=== PATIENT | female | born 1975 | race Caucasian/White ===

== ENCOUNTER 2017-02-24 22:41 | Emergency (ER) | payer BC ==
--- NOTE | 2017-02-25 02:57 | ED CLINICAL REPORT ---
Clinical Report - Physicians/Mid Levels [facility] [address] [place] [address] 02/24/2017 22:43 Patient: YARA VERNON Time Seen: 01:36. Arrived- By private vehicle. Historian- patient. HISTORY OF PRESENT ILLNESS Chief Complaint: ABDOMINAL PAIN. At its maximum, severity described as 10 / 10. When seen in the E.D., severity described as 6 / 10. Modifying factors- worsened by movement and walking. Relieved by rest. It is described as sharp and it is described as located in the left abdomen and left lower quadrant and radiating to the low back. This started last night and is still present. It was abrupt in onset and has been constant and waxing/waning. The patient has had nausea. No vomiting or diarrhea. Similar symptoms previously: Many times. Diagnosis: pancreatitis. ( hypertriglyceridemia She has also had bouts of this pain that were for unexplained reasons). REVIEW OF SYSTEMS Last normal menstrual period now. No chills, fever, calf pain, chest pain or cough. No difficulty breathing, pedal edema, palpitations, black stools or bloody stools. No constipation or urinary problems. The patient has experienced sweats and had abdominal pain and mild diarrhea. All systems otherwise negative, except as recorded above. PAST HISTORY PCP - Luke. Problems: Anxiety Reaction. Gerd. Pancreatitis. Hyperlipidemia. Additional Surgeries: Cyct on rt overy removal. Rt overy removed. Tubal Ligation. Medications: Atorvastatin Calcium Oral (Tablet 20 mg), daily. Zoloft Oral 50 mg, daily. Omeprazole Oral 20 mg, daily. Allergies: Hydrocodone. SOCIAL HISTORY Current every day heavy tobacco smoker (cigarette)- 1 pack per day. No alcohol use. Residence: [place] she lives with spouse. FAMILY HISTORY Diabetes in first-degree relative (father); heart disease in first-degree relative (father); cancer in first-degree relative (mother). ADDITIONAL NOTES The nursing notes have been reviewed. PHYSICAL EXAM Vital Signs: 02/24/2017 23:33 BP: 140/76. HR: 68. RR: 16. O2 saturation: 97%. Temp: 98 F. Pain level now: 06/16. Have been reviewed. Appearance: Alert. Eyes: Pupils equal, round and reactive to light. ENT: Pharynx normal. Neck: Normal inspection. Neck supple. CVS: Normal heart rate and rhythm. Heart sounds normal. Respiratory: No respiratory distress. Breath sounds normal. Abdomen: Moderate tenderness in the left side of the abdomen. Bowel sounds normal. No organomegaly. No mass. Back: Normal inspection. No CVA tenderness. Skin: Skin warm and dry. Normal skin color. Normal skin turgor. Extremities: Extremities exhibit normal ROM. No calf tenderness. No lower extremity edema. LABS, X-RAYS, AND EKG Abdominal CT: Normal study. The study was interpreted by the radiologist and contemporaneously by me. Laboratory Tests: UA-Culture if indicated: (MANUEL: 02/25/2017 01:30) ( [facility] [place] 01:59[place] Final results Test Result Flag Units (Reference) URINE COLOR YELLOW URINE APPEARANCE CLEAR URINE GLUCOSE NEGATIVE (NEGATIVE) URINE BILIRUBIN NEGATIVE (NEGATIVE) URINE KETONE TRACE (NEGATIVE) URINE SPECIFIC GRAVITY 1.020 (1.010-1.030) URINE PH 5.5 (5.0-8.0) URINE PROTEIN NEGATIVE (NEGATIVE) URINE UROBILINOGEN 0.2 EU/dL (0.2-1.0) URINE NITRITE NEGATIVE (NEGATIVE) URINE BLOOD 2+ (NEGATIVE) URINE LEUK ESTERASE NEGATIVE (NEGATIVE) URINE RBC 1-3 rbc/hpf (0-1) URINE WBC 0-1 wbc/hpf (0-1) URINE EPITHELIAL CELLS 0-1 EPI/hpf (0-5) URINE BACTERIA NONE SEEN (NONE SEEN) URINE COMMENT CULT NOT INDICATED URINE CULTURES ARE SET-UP BASED ON THE FOLLOWING CRITERIA:POSITIVE NITRITEPOSITIVE LEUKOCYTE ESTERASEGREATER THAN 10 WHITE BLOOD CELLSMODERATE (2+) OR GREATER BACTERIA Urine: (MANUEL: 02/25/2017 01:30) ( Mscvd 02/25/2017 01:52) Final results Test Result Flag Units (Reference) URINE NEGATIVE CBC w Diff: (MANUEL: 02/25/2017 01:30) ( MsgRcvd 02/25/2017 01:50) Final results Test Result Flag Units (Reference) WHITE BLOOD COUNT 9.6 K/uL (4.5-11.5) RED BLOOD COUNT 4.40 M/uL (4.00-5.20) HEMOGLOBIN 13.5 gm/dL (12.0-16.0) HEMATOCRIT 39.5 % (36.0-46.0) MEAN CELL VOLUME 90 fL (80-100) MEAN CORPUSCULAR HGB 31 pg (26-34) MEAN CORPUSCULAR HGB CONC 34 g/dL (31-37) RED CELL DISTRIBUTION WIDTH 12.2 % (11.6-14.8) PLATELET COUNT 180 K/uL (150-400) NEUTROPHIL % 63.4 % (50-75) LYMPH % 27.6 % (25-40) MONO % 6.9 % (3-14) EOSINOPHIL % 1.7 % (0-4) BASOPHIL % 0.4 % (0-2) CMP: (MANUEL: 02/25/2017 01:30) ( MsgRcvd 02/25/2017 02:03) Final results Test Result Flag Units (Reference) GLUCOSE 107 mg/dL (70-110) BUN 10 mg/dL (7-18) CREATININE 0.9 mg/dL (0.6-1.3) Estimated GFR >60 mL/min Estimated GFR- >60 mL/min Note: Persistent reduction over 3 months in eGFR<60 mL/min/1.73 m2 defines CKD. Patients with eGFR values>=60 mL/min/1.73 m2 may also have CKD if evidence ofpersistent proteinuria. Additional information may be foundat www.kidney.org. SODIUM 143 mmol/L (136-145) POTASSIUM 3.6 mmol/L (3.5-5.1) CHLORIDE 106 mmol/L (98-107) CARBON DIOXIDE 28 mmol/L (21-32) CALCIUM 8.8 mg/dL (8.5-10.1) TOTAL PROTEIN 7.4 g/dL (6.4-8.2) ALBUMIN 3.9 g/dL (3.3-5.0) BILIRUBIN, TOTAL 0.6 mg/dL (0.0-1.0) ALKALINE PHOSPHATASE 43 L U/L (46-116) AST (SGOT) 15 U/L (15-37) ALT (SGPT) 39 U/L (12-78) LIPASE 197 U/L (73-393) AMYLASE 40 U/L (25-115) . PROGRESS AND PROCEDURES Course of Care: Patient is stable. Patient/family counseled. Old medical records ordered. Old records unavailable. Disposition: Discharged. Condition: stable. CLINICAL IMPRESSION Left lower quadrant abdominal pain of unknown cause. Microscopic hematuria INSTRUCTIONS No driving or operating machinery while taking medication. Sedative medication was given during your visit. Drink plenty of fluids. Warnings: Further evaluation is necessary. GENERAL WARNINGS: Return or contact your physician immediately if your condition worsens or changes unexpectedly, if not improving as expected, or if other problems arise. Prescription Medications: Ultram 50 mg: take 1-2 orally every 6 hours as needed for pain. Dispense fifteen (15). No refills. Substitution is permissible. Follow-up: Follow up with a urologist schedule your cystoscopy as previously planned as discussed. Understanding of the discharge instructions verbalized by patient. Follow-up with: [facility] [place], , , [id number] [facility] [address], Follow up tomorrow. Call for an appointment. (Electronically signed by Sancho Flores MD 03/02/2017 22:18)
--- NOTE | 2017-02-25 02:57 | ED ORDER SUMMARY ---
..... Patient: YARA VERNON OrderSheet [facility] VisitID: [id number] [place] [address] 41y, F Registration Date/Time: 02/24/2017 ORDER SHEET Weight: 79.3 kg (stated) Allergies: Hydrocodone GENERAL ORDERS: CBC w Diff Urgent (:02/25/2017 Aakash GOODWIN) (1:43 CFalkner R.N.) CMP Urgent (:02/25/2017 Aakash GOODWIN) (1:43 CFalkner R.N.) UA-Culture if indicated Urgent (:02/25/2017 Aakash GOODWIN) (1:43 CFalkner R.N.) Amylase Urgent (02/25/2017 Aakash GOODWIN) (1:43 CFalkner R.N.) Lipase Urgent (:02/25/2017 Aakash GOODWIN) (1:43 CFalkner R.N.) Urine Urgent (:02/25/2017 Aakash GOODWIN) (1:43 CFalkner R.N.) CT Abd/Pel w Cont (No) (See report) Urgent (02:02/25/2017 Aakash GOODWIN) (Ack 2:12 SRedmond) (2:27 RCollier R.N.) MEDICATION ORDERS: IV FLUIDS: IV NS : initial bolus 500 mL (1000 mL/hr), then 125 mL/hr for 4h (NOW); Urgent (:02/25/2017 Aakash GOODWIN) (Ack 1:42 RCollier R.N.) (2:26 RCollier R.N.) Dilaudid IV 0.5 mg (HIGH ALERT MEDICATION, NOW) (02:02/25/2017 Aakash GOODWIN) (Ack 2:17 RCollier R.N.) (2:27 RCollier R.N.) Zofran IV 4 mg (NOW) (02:02/25/2017 Aakash GOODWIN) (Ack 2:17 RCollier R.N.) (2:26 RCollier R.N.) ORDER SHEET NOTES: [Electronically signed by Ashley Qureshi R.N. (03:13 02/25/2017)] [Electronically signed by Sancho Flores MD (22:18 03/02/2017)] [Electronically locked/signed by Ashley Qureshi R.N. (03:13 02/25/2017)]
--- NOTE | 2017-02-25 02:57 | ED NURSING NOTES ---
Clinical Report - Nurses [facility] [place] [address] 02/24/2017 22:43 Patient: YARA VERNON TRIAGE Triage time 23:34. Acuity: LEVEL 3. Chief Complaint: ABDOMINAL PAIN, NAUSEA and DIARRHEA. 23:42. --23:42 Ana Melvin R.N. 23:33 02/24/17. BP: 140/76 taken on the left arm, via an automated monitor, while sitting. HR: 68 (regular, normal rate and strong). RR: 16 (regular, unlabored and normal). O2 saturation: 97% on room air. Temp: 98 F (oral). Pain level now: 06/16. --23:42 Ana Melvin R.N. Weight: 79.3 kg stated. Height/Length: 65 inches. BMI: 29.1. --23:35 Ana Melvin R.N. Medications Omeprazole Oral 20 mg, daily. --23:37 Ana Melvin R.N. Zoloft Oral 50 mg, daily. --23:37 Ana Melvin R.N. Atorvastatin Calcium Oral (Tablet 20 mg), daily. --23:38 Ana Melvin R.N. Allergies Hydrocodone. --23:38 Ana Melvin R.N. History Arrived by private vehicle. Historian: patient. Accompanied by spouse. SOCIAL HX: Current every day heavy tobacco smoker, start date 1991- less than 1 pack per day. No alcohol use or drug use. FALL RISK ASSESSMENT: Fall risk assessment completed. No fall risk identified. NUTRITIONAL RISK ASSESSMENT: The nutritional risk assessment revealed no deficiencies. FUNCTIONAL ASSESSMENT: Functional assessment: no impairments noted. LEARNING NEEDS ASSESSMENT: The learning needs assessment revealed no barriers. SKIN INTEGRITY ASSESSMENT: Skin integrity risk assessment completed. No skin integrity risk identified. --23:42 Ana Melvin R.N. PROBLEMS: Anxiety Reaction. Gerd. Pancreatitis. Hyperlipidemia. --23:40 Ana Melvin R.N. ADDITIONAL SURGERIES: Cyct on rt overy removal. Rt overy removed. Tubal Ligation. --:42 Ana Melvin R.N. Interventions To waiting room. --:42 Ana Melvin R.N. PHYSICAL ASSESSMENT Ambulatory to room. Patient gowned. GENERAL / NEURO / PSYCH: Alert. Oriented X 4. Appears in pain. HEENT: Mucous membranes are pink. RESPIRATORY: Respirations not labored. CVS: Capillary refill less than 2 seconds. SKIN: Skin is warm and dry. --:31 Ashley Qureshi R.N. NURSING PROGRESS NOTES Head of bed elevated. Two patient identifiers checked. Call light placed in reach. Side rails up x 1. Bed placed in lowest position. Brakes of bed on. --: Ashley Qureshi R.N. Patient ID band checked for patient name and birthdate: patient confirmed. Instructions provided to collect clean catch urine and patient verbalized understanding. Clean catch urine collected with return of yellow-colored clear urine; sample sent to lab. Specimen labeled in the presence of the patient. --01:33 Ashley Qureshi R.N. 01:49 02/25/2017 Site #1 started via IV in the right antecubital space with an 20g angiocath, with aseptic technique and good blood return; one attempt. Blood drawn: rainbow set. Labeled in the presence of the patient and sent to the lab. Saline lock flushed with 10 mL saline. --01:49 Ana Melvin R.N. 02:20 02/25/2017 Started bag #1 1000 mL IV Fluids IV NS (Saline); bolus of 500 mL over 30 minute(s) then at 125 mL/hr via site #1 via IV pump. Allergies verified and confirmed 5 rights. IV patency established. IV site checked: no pain, redness, or swelling. IV flushed thoroughly pre- and post-medication administration. --02:26 Ashley Qureshi R.N. 02:23 02/25/2017 Zofran (Ondansetron HCl) IVP 4 mg given over 30 second(s) via site #1. Allergies verified and confirmed 5 rights. IV patency established. IV site checked: no pain, redness, or swelling. IV flushed thoroughly pre- and post-medication administration. IVP given by RN. --02:26 Ashley Qureshi R.N. 02:24 02/25/2017 Dilaudid (HYDROmorphone HCl PF) IVP 0.5 mg given over 1 minute(s) via site #1. Allergies verified, confirmed 5 rights and sedative warning given to the patient. IV patency established. IV site checked: no pain, redness, or swelling. IV flushed thoroughly pre- and post-medication administration. IVP given by RN. --02:27 Ashley Qureshi R.N. Patient transported to [place] by stretcher with [facility]. (02:25). --02:27 Ashley Qureshi R.N. DISPOSITION / DISCHARGE 03:11 02/25/17. BP: 128/77. HR: 62. RR: 15. O2 saturation: 99% on room air. Gibbons-Bravo pain scale: 4/10. --03:12 Ashley Qureshi R.N. 03:10. Condition at departure: stable. No learning barriers present. Discharge instructions provided and reviewed with the patient. Reviewed medication(s) side effects, precautions, dosing and course information. Prescription(s) given to the patient. Patient verbalized understanding. Written instructions provided in Malay. The patient was discharged home and accompanied by spouse. She left the Emergency Department ambulatory and via private vehicle. Spouse driving. --03:12 Ashley Qureshi R.N. 03:10 02/25/2017 IV Fluids IV NS Discontinued: bag #1 STOPPED. Total amount infused: 200 mL. IV patency established. IV site checked: no pain, redness, or swelling. IV flushed thoroughly. --03:12 Ashley Qureshi R.N. 03:12 02/25/2017 Site #1 removed upon discharge. Catheter intact. Manual pressure and bandage applied. --03:12 Ashley Qureshi R.N. Locked/Released at 02/25/2017 3:13 by Ashley Qureshi R.N.
--- NOTE | 2017-02-25 02:57 | ED CLINICAL REPORT ---
Clinical Report - Physicians/Mid Levels [facility] [address] [place] [address] 02/24/2017 22:43 Patient: YARA VERNON Time Seen: 01:36. Arrived- By private vehicle. Historian- patient. HISTORY OF PRESENT ILLNESS Chief Complaint: ABDOMINAL PAIN. At its maximum, severity described as 10 / 10. When seen in the E.D., severity described as 6 / 10. Modifying factors- worsened by movement and walking. Relieved by rest. It is described as sharp and it is described as located in the left abdomen and left lower quadrant and radiating to the low back. This started last night and is still present. It was abrupt in onset and has been constant and waxing/waning. The patient has had nausea. No vomiting or diarrhea. Similar symptoms previously: Many times. Diagnosis: pancreatitis. ( hypertriglyceridemia She has also had bouts of this pain that were for unexplained reasons). REVIEW OF SYSTEMS Last normal menstrual period now. No chills, fever, calf pain, chest pain or cough. No difficulty breathing, pedal edema, palpitations, black stools or bloody stools. No constipation or urinary problems. The patient has experienced sweats and had abdominal pain and mild diarrhea. All systems otherwise negative, except as recorded above. PAST HISTORY PCP - Luke. Problems: Anxiety Reaction. Gerd. Pancreatitis. Hyperlipidemia. Additional Surgeries: Cyct on rt overy removal. Rt overy removed. Tubal Ligation. Medications: Atorvastatin Calcium Oral (Tablet 20 mg), daily. Zoloft Oral 50 mg, daily. Omeprazole Oral 20 mg, daily. Allergies: Hydrocodone. SOCIAL HISTORY Current every day heavy tobacco smoker (cigarette)- 1 pack per day. No alcohol use. Residence: [place] she lives with spouse. FAMILY HISTORY Diabetes in first-degree relative (father); heart disease in first-degree relative (father); cancer in first-degree relative (mother). ADDITIONAL NOTES The nursing notes have been reviewed. PHYSICAL EXAM Vital Signs: 02/24/2017 23:33 BP: 140/76. HR: 68. RR: 16. O2 saturation: 97%. Temp: 98 F. Pain level now: 06/16. Have been reviewed. Appearance: Alert. Eyes: Pupils equal, round and reactive to light. ENT: Pharynx normal. Neck: Normal inspection. Neck supple. CVS: Normal heart rate and rhythm. Heart sounds normal. Respiratory: No respiratory distress. Breath sounds normal. Abdomen: Moderate tenderness in the left side of the abdomen. Bowel sounds normal. No organomegaly. No mass. Back: Normal inspection. No CVA tenderness. Skin: Skin warm and dry. Normal skin color. Normal skin turgor. Extremities: Extremities exhibit normal ROM. No calf tenderness. No lower extremity edema. LABS, X-RAYS, AND EKG Abdominal CT: Normal study. The study was interpreted by the radiologist and contemporaneously by me. Laboratory Tests: UA-Culture if indicated: (MANUEL: 02/25/2017 01:30) ( [facility] [place]/25/[place] 01:59) Final results Test Result Flag Units (Reference) URINE COLOR YELLOW URINE APPEARANCE CLEAR URINE GLUCOSE NEGATIVE (NEGATIVE) URINE BILIRUBIN NEGATIVE (NEGATIVE) URINE KETONE TRACE (NEGATIVE) URINE SPECIFIC GRAVITY 1.020 (1.010-1.030) URINE PH 5.5 (5.0-8.0) URINE PROTEIN NEGATIVE (NEGATIVE) URINE UROBILINOGEN 0.2 EU/dL (0.2-1.0) URINE NITRITE NEGATIVE (NEGATIVE) URINE BLOOD 2+ (NEGATIVE) URINE LEUK ESTERASE NEGATIVE (NEGATIVE) URINE RBC 1-3 rbc/hpf (0-1) URINE WBC 0-1 wbc/hpf (0-1) URINE EPITHELIAL CELLS 0-1 EPI/hpf (0-5) URINE BACTERIA NONE SEEN (NONE SEEN) URINE COMMENT CULT NOT INDICATED URINE CULTURES ARE SET-UP BASED ON THE FOLLOWING CRITERIA:POSITIVE NITRITEPOSITIVE LEUKOCYTE ESTERASEGREATER THAN 10 WHITE BLOOD CELLSMODERATE (2+) OR GREATER BACTERIA Urine: (MANUEL: 02/25/2017 01:30) ( Mscvd 02/25/2017 01:52) Final results Test Result Flag Units (Reference) URINE NEGATIVE CBC w Diff: (MANUEL: 02/25/2017 01:30) ( MsgRcvd 02/25/2017 01:50) Final results Test Result Flag Units (Reference) WHITE BLOOD COUNT 9.6 K/uL (4.5-11.5) RED BLOOD COUNT 4.40 M/uL (4.00-5.20) HEMOGLOBIN 13.5 gm/dL (12.0-16.0) HEMATOCRIT 39.5 % (36.0-46.0) MEAN CELL VOLUME 90 fL (80-100) MEAN CORPUSCULAR HGB 31 pg (26-34) MEAN CORPUSCULAR HGB CONC 34 g/dL (31-37) RED CELL DISTRIBUTION WIDTH 12.2 % (11.6-14.8) PLATELET COUNT 180 K/uL (150-400) NEUTROPHIL % 63.4 % (50-75) LYMPH % 27.6 % (25-40) MONO % 6.9 % (3-14) EOSINOPHIL % 1.7 % (0-4) BASOPHIL % 0.4 % (0-2) CMP: (MANUEL: 02/25/2017 01:30) ( MsgRcvd 02/25/2017 02:03) Final results Test Result Flag Units (Reference) GLUCOSE 107 mg/dL (70-110) BUN 10 mg/dL (7-18) CREATININE 0.9 mg/dL (0.6-1.3) Estimated GFR >60 mL/min Estimated GFR- >60 mL/min Note: Persistent reduction over 3 months in eGFR<60 mL/min/1.73 m2 defines CKD. Patients with eGFR values>=60 mL/min/1.73 m2 may also have CKD if evidence ofpersistent proteinuria. Additional information may be foundat www.kidney.org. SODIUM 143 mmol/L (136-145) POTASSIUM 3.6 mmol/L (3.5-5.1) CHLORIDE 106 mmol/L (98-107) CARBON DIOXIDE 28 mmol/L (21-32) CALCIUM 8.8 mg/dL (8.5-10.1) TOTAL PROTEIN 7.4 g/dL (6.4-8.2) ALBUMIN 3.9 g/dL (3.3-5.0) BILIRUBIN, TOTAL 0.6 mg/dL (0.0-1.0) ALKALINE PHOSPHATASE 43 L U/L (46-116) AST (SGOT) 15 U/L (15-37) ALT (SGPT) 39 U/L (12-78) LIPASE 197 U/L (73-393) AMYLASE 40 U/L (25-115) . PROGRESS AND PROCEDURES Course of Care: Patient is stable. Patient/family counseled. Old medical records ordered. Old records unavailable. Disposition: Discharged. Condition: stable. CLINICAL IMPRESSION Left lower quadrant abdominal pain of unknown cause. Microscopic hematuria INSTRUCTIONS No driving or operating machinery while taking medication. Sedative medication was given during your visit. Drink plenty of fluids. Warnings: Further evaluation is necessary. GENERAL WARNINGS: Return or contact your physician immediately if your condition worsens or changes unexpectedly, if not improving as expected, or if other problems arise. Prescription Medications: Ultram 50 mg: take 1-2 orally every 6 hours as needed for pain. Dispense fifteen (15). No refills. Substitution is permissible. Follow-up: Follow up with a urologist schedule your cystoscopy as previously planned as discussed. Understanding of the discharge instructions verbalized by patient. Follow-up with: [facility], , , [id number] [facility] [address] [address], [place] [address], Follow up tomorrow. Call for an appointment. (Electronically signed by Sancho Flores MD 03/02/2017 22:18)
--- NOTE | 2017-02-25 02:57 | ED ORDER SUMMARY ---
..... Patient: YARA VERNON OrderSheet [facility] VisitID: [id number] [place] [address] 41y, F Registration Date/Time: 02/24/2017 ORDER SHEET Weight: 79.3 kg (stated) Allergies: Hydrocodone GENERAL ORDERS: CBC w Diff Urgent (:02/25/2017 Aakash GOODWIN) (1:43 CFalkner R.N.) CMP Urgent (:02/25/2017 Aakash GOODWIN) (1:43 CFalkner R.N.) UA-Culture if indicated Urgent (:02/25/2017 Aakash GOODWIN) (1:43 CFalkner R.N.) Amylase Urgent (02/25/2017 Aakash GOODWIN) (1:43 CFalkner R.N.) Lipase Urgent (:02/25/2017 Aakash GOODWIN) (1:43 CFalkner R.N.) Urine Urgent (:02/25/2017 Aakash GOODWIN) (1:43 CFalkner R.N.) CT Abd/Pel w Cont (No) (See report) Urgent (02:02/25/2017 Aakash GOODWIN) (Ack 2:12 SRedmond) (2:27 RCollier R.N.) MEDICATION ORDERS: IV FLUIDS: IV NS : initial bolus 500 mL (1000 mL/hr), then 125 mL/hr for 4h (NOW); Urgent (:02/25/2017 Aakash GOODWIN) (Ack 1:42 RCollier R.N.) (2:26 RCollier R.N.) Dilaudid IV 0.5 mg (HIGH ALERT MEDICATION, NOW) (02:02/25/2017 Aakash GOODWIN) (Ack 2:17 RCollier R.N.) (2:27 RCollier R.N.) Zofran IV 4 mg (NOW) (02:02/25/2017 Aakash GOODWIN) (Ack 2:17 RCollier R.N.) (2:26 RCollier R.N.) ORDER SHEET NOTES: [Electronically signed by Ashley Qureshi R.N. (03:13 02/25/2017)] [Electronically signed by Sancho Flores MD (22:18 03/02/2017)] [Electronically locked/signed by Aslhey Qureshi R.N. (03:13 02/25/2017)]
--- NOTE | 2017-02-25 07:36 | DIAGNOSTIC IMAGING REPORT ---
PROCEDURE: CT ABD/PELVIS WITH CONTRAST CLINICAL INDICATION: Lower abdominal pain, initial encounter. TECHNIQUE: 125 ml of Isovue 300 were injected intravenously and axial images were obtained of the entire abdomen and pelvis with sagittal and coronal reformations. COMPARISON: None. FINDINGS: ABDOMEN: Lung base are clear. Heart size is normal. Liver, gallbladder, pancreas, spleen, adrenal glands, kidneys and abdominal aorta are normal. Moderate stool. PELVIS: Normal appendix uterus, adnexa and bladder are normal. Trace free fluid. No inflammatory changes. Bones are unremarkable. IMPRESSION: 1. No acute changes. 2. Preliminary submitted by Dr. Thao, [facility] radiology. All CT scans at this facility use dose modulation, iterative reconstruction, and/or weight-based dosing when appropriate to reduce radiation dose to as low as reasonably achievable.
--- NOTE | 2017-03-02 22:18 | ED MAR SUMMARY ---
..... Medication Administration Record [facility] [address] [place] [address] Patient: YARA VERNON Visit ID: [id number] 41y, F Weight: 79.3 kg Height/Length: 65 in BMI: 29.1 ALLERGIES: Hydrocodone Start 02:20 02/25/2017 Ashley Qureshi R.N., Stop 03:10 02/25/2017 Ashley Qureshi R.N. Medication Administered: IV NS (SALINE), Dose: IV Fluids, Rate: 125 mL/hr, Bolus: 500 mL over 30 minute(s), Dispensed: 1000 mL bag, Site: #1 right AC. Medication Ordered: IV NS : initial bolus 500 mL (1000 mL/hr), then 125 mL/hr for 4h (NOW); Urgent. Given 02:02/25/2017 Ashley Qureshi R.N. Medication Administered: ZOFRAN [IVP] (ONDANSETRON HCL), Dose: 4 mg IVP over 30 second(s), Site: #1 right AC. Medication Ordered: Zofran IV 4 mg (NOW). Given 02:02/25/2017 Ashley Qureshi RTyree Medication Administered: DILAUDID [IVP] (HYDROMORPHONE HCL PF), Dose: 0.5 mg IVP over 1 minute(s), Site: #1 right AC. Medication Ordered: Dilaudid IV 0.5 mg (HIGH ALERT MEDICATION, NOW).
--- NOTE | 2017-03-02 22:18 | ED MED RECONCILIATION SUMMARY ---
Patient: YARA VERNON Medication Reconciliation Report [facility] VisitID: [id number] [place] [address] 41y, F Registration Date/Time: 02/24/2017 Weight: 79.3 kg Height/Length: 65 in. BMI: 29.1 ALLERGIES: Hydrocodone The patient's Home Medications are listed below: THE FOLLOWING MEDICATIONS NEED TO BE RECONCILED: Atorvastatin Calcium Oral (20 mg), daily Omeprazole Oral 20 mg, daily Zoloft Oral 50 mg, daily The source(s) of the original Home Medication information: Not obtained. The following Medications were given to the patient in the Emergency Department: IV NS IV Fluids bolus 500 mL over 30 minute(s), then 125 mL/hr, administered: 02/25/2017 2:20:00 AM Zofran [IVP] IVP 4 mg, administered: 02/25/2017 2:23:00 AM Dilaudid [IVP] IVP 0.5 mg, administered: 02/25/2017 2:24:00 AM The following Medications were prescribed to the patient: Ultram 50 mg: take 1-2 orally every 6 hours as needed for pain. Dispense fifteen (15). No refills. Substitution is permissible. -- Sancho Flores MD
--- NOTE | 2017-03-02 22:18 | ED MED RECONCILIATION SUMMARY ---
Patient: YARA VERNON Medication Reconciliation Report [facility] VisitID: [id number] [place] [address] 41y, F Registration Date/Time: 02/24/2017 Weight: 79.3 kg Height/Length: 65 in. BMI: 29.1 ALLERGIES: Hydrocodone The patient's Home Medications are listed below: THE FOLLOWING MEDICATIONS NEED TO BE RECONCILED: Atorvastatin Calcium Oral (20 mg), daily Omeprazole Oral 20 mg, daily Zoloft Oral 50 mg, daily The source(s) of the original Home Medication information: Not obtained. The following Medications were given to the patient in the Emergency Department: IV NS IV Fluids bolus 500 mL over 30 minute(s), then 125 mL/hr, administered: 02/25/2017 2:20:00 AM Zofran [IVP] IVP 4 mg, administered: 02/25/2017 2:23:00 AM Dilaudid [IVP] IVP 0.5 mg, administered: 02/25/2017 2:24:00 AM The following Medications were prescribed to the patient: Ultram 50 mg: take 1-2 orally every 6 hours as needed for pain. Dispense fifteen (15). No refills. Substitution is permissible. -- Sancho Flores MD
--- NOTE | 2017-03-02 22:18 | ED DISCHARGE INSTRUCTIONS ---
Patient: YARA VERNON General Instructions [facility] VisitID: [id number] [place] [address] 41y, F Registration Date/Time: 02/24/2017 Left lower quadrant abdominal pain of unknown cause. Microscopic hematuria INSTRUCTIONS No driving or operating machinery while taking medication. Sedative medication was given during your visit. Drink plenty of fluids. Warnings: Further evaluation is necessary. GENERAL WARNINGS: Return or contact your physician immediately if your condition worsens or changes unexpectedly, if not improving as expected, or if other problems arise. Prescription Medications: Ultram 50 mg: take 1-2 orally every 6 hours as needed for pain. Dispense fifteen (15). No refills. Substitution is permissible. Follow-up: Follow up with a urologist schedule your cystoscopy as previously planned as discussed. Understanding of the discharge instructions verbalized by patient. Follow-up with: [facility], , , [id number] [address], [place], Follow up tomorrow. Call for an appointment. ADDITIONAL INFORMATION Abdominal Pain, Unknown Cause (Female) The exact cause of your abdominal (stomach) pain is not certain. This does not mean that this is something to worry about, or the right tests were not done. Everyone likes to know the exact cause of the problem, but sometimes with abdominal pain, there is no clear-cut cause, and this could be a good thing. The good news is that your symptoms can be treated, and you will feel better. Your condition does not seem serious now; however, sometimes the signs of a serious problem may take more time to appear. For this reason,it is important for you to watch for any new symptoms, problems,or worsening of your condition. Over the next few days, the abdominal pain may come and go, or be continuous. Other common symptoms can include nausea and vomiting. Sometimes it can be difficult to tell if you feel nauseous, you may just feel bad and not associate that feeling with nausea. Constipation, diarrhea, and a fever may go along with the pain. The pain may continue even if treated correctly over the following days. Depending on how things go, sometimes the cause can become clear and may require further or different treatment. Additional evaluations, medications, or tests may be needed. Home care Your health care provider may prescribe medications for pain, symptoms, or an infection. Follow the health care provider's instructions for taking these medications. General care Rest until your next exam. No strenuous activities. Try to find positions that ease discomfort. A small pillow placed on the abdomen may help relieve pain. Something warm on your abdomen (such as a heating pad) may help, but be careful not to burn yourself. Diet Do not force yourself to eat, especially if having cramps, vomiting, or diarrhea. Water is important so you do not get dehydrated. Soup may also be good. Sports drinks may also help, especially if they are not too acidic. Make sure you don't drink sugary drinks as this can make things worse. Take liquids in small amounts. Do not guzzle them. Caffeine sometimes makes the pain and cramping worse. Avoid dairy products if you have vomiting or diarrhea. Don't eat large amounts at a time. Wait a few minutes between bites. Eat a diet low in fiber (called a low-residue diet). Foods allowed include refined breads, white rice, fruit and vegetable juices without pulp, tender meats. These foods will pass more easily through the intestine. Avoid whole-grain foods, whole fruits and vegetables, meats, seeds and nuts, fried or fatty foods, dairy, alcohol and spicy foods until your symptoms go away. Follow-up care Follow up with your health care provider as instructed, or if your pain does not begin to improve in the next 24 hours. When to seek medical care Seek prompt medical care if any of the following occur: Pain gets worse or moves to the right lower abdomen New or worsening vomiting or diarrhea Swelling of the abdomen Unable to pass stool for more than three days Fever of 100.4F (38C) or higher, or as directed by your healthcare provider. Blood in vomit or bowel movements (dark red or black color) Jaundice (yellow color of eyes and skin) Weakness, dizziness Chest, arm, back, neck or jaw pain Unexpected vaginal bleeding or missed period Call 911 Call emergency services if any of the following occur: Trouble breathing Confusion Fainting or loss of consciousness Rapid heart rate Seizure Blood In The Urine Blood in the urine ("hematuria") has many possible causes. If it occurs after an injury (such as a car accident or fall), it is most often a sign of bruising to the kidney or bladder. Common medical causes of blood in the urine include urinary tract infection, kidney stone, inflammation, tumors, or certain other diseases of the kidney or bladder. Menstruation can cause blood to appear in the urine sample, although it is not coming from the urinary tract. If only a trace amount of blood is present, it will show up on the urine test, even though the urine may be yellow and not pink or red. This may occur with any of the above conditions, as well as heavy exercise or high fever. In this case, your doctor may want to repeat the urine test on another day. This will show if the blood is still present. If so, then other tests can be done to find out the cause. Home Care: If your urine does not appear bloody (pink, brown or red) then you do not need to restrict your activity in any way. If you can see blood in your urine, rest and avoid heavy exertion until your next exam. Do not use aspirin or anti-inflammatory medicine like ibuprofen (Motrin, Advil) or naproxen (Naprosyn, Aleve). These thin the blood and may increase bleeding. Follow Up with your doctor or as advised by our staff. If you were injured and had blood in your urine, you should have a repeat urine test in 1-2 days. Contact your doctor or return to this facility for this test. [NOTE: A radiologist will review any X-rays that were taken. We will notify you of any new findings that may affect your care.] Get Prompt Medical Attention if any of the following occur: Bright red blood or blood clots in the urine (if a new symptom) Weakness, dizziness or fainting New groin, abdominal or back pain Fever of 100.4F (38C) or higher, or as directed by your healthcare provider Repeated vomiting Bleeding from nose, gums or easy bruising Tramadol Hydrochloride Oral tablet What is this medicine? TRAMADOL (TRA ma dole) is a pain reliever. It is used to treat moderate to severe pain in adults. How should I use this medicine? Take this medicine by mouth with a full glass of water. Follow the directions on the prescription label. If the medicine upsets your stomach, take it with food or milk. Do not take more medicine than you are told to take. Talk to your integrated circuit ic layout designer regarding the use of this medicine in children. Special care may be needed. What side effects may I notice from receiving this medicine? Side effects that you should report to your doctor or health care specialist as soon as possible: allergic reactions like skin rash, itching or hives, swelling of the face, lips, or tongue breathing difficulties, wheezing confusion itching light headedness or fainting spells redness, blistering, peeling or loosening of the skin, including inside the mouth seizures Side effects that usually do not require medical attention (report to your doctor or health care specialist if they continue or are bothersome): constipation dizziness drowsiness headache nausea, vomiting What may interact with this medicine? Do not take this medicine with any of the following medications: MAOIs like Carbex, Eldepryl, Marplan, Nardil, and Parnate This medicine may also interact with the following medications: alcohol or medicines that contain alcohol antihistamines benzodiazepines bupropion carbamazepine or oxcarbazepine clozapine cyclobenzaprine digoxin furazolidone linezolid medicines for depression, anxiety, or psychotic disturbances medicines for migraine headache like almotriptan, eletriptan, frovatriptan, naratriptan, rizatriptan, sumatriptan, zolmitriptan medicines for pain like pentazocine, buprenorphine, butorphanol, meperidine, nalbuphine, and propoxyphene medicines for sleep muscle relaxants naltrexone phenobarbital phenothiazines like perphenazine, thioridazine, chlorpromazine, mesoridazine, fluphenazine, prochlorperazine, promazine, and trifluoperazine procarbazine warfarin What if I miss a dose? If you miss a dose, take it as soon as you can. If it is almost time for your next dose, take only that dose. Do not take double or extra doses. Where should I keep my medicine? Keep out of the reach of children. Store at room temperature between 15 and 30 degrees C (59 and 86 degrees F). Keep container tightly closed. Throw away any unused medicine after the expiration date. What should I tell my health care provider before I take this medicine? They need to know if you have any of these conditions: brain tumor depression drug abuse or addiction head injury if you frequently drink alcohol containing drinks kidney disease or trouble passing urine liver disease lung disease, asthma, or breathing problems seizures or epilepsy suicidal thoughts, plans, or attempt; a previous suicide attempt by you or a family member an unusual or allergic reaction to tramadol, codeine, other medicines, foods, dyes, or preservatives or trying to get breast-feeding What should I watch for while using this medicine? Tell your doctor or health care specialist if your pain does not go away, if it gets worse, or if you have new or a different type of pain. You may develop tolerance to the medicine. Tolerance means that you will need a higher dose of the medicine for pain relief. Tolerance is normal and is expected if you take this medicine for a long time. Do not suddenly stop taking your medicine because you may develop a severe reaction. Your body becomes used to the medicine. This does NOT mean you are addicted. Addiction is a behavior related to getting and using a drug for a non-medical reason. If you have pain, you have a medical reason to take pain medicine. Your doctor will tell you how much medicine to take. If your doctor wants you to stop the medicine, the dose will be slowly lowered over time to avoid any side effects. You may get drowsy or dizzy. Do not drive, use machinery, or do anything that needs mental alertness until you know how this medicine affects you. Do not stand or sit up quickly, especially if you are an older patient. This reduces the risk of dizzy or fainting spells. Alcohol can increase or decrease the effects of this medicine. Avoid alcoholic drinks. You may have constipation. Try to have a bowel movement at least every 2 to 3 days. If you do not have a bowel movement for 3 days, call your doctor or health care specialist. Your mouth may get dry. Chewing sugarless gum or sucking hard candy, and drinking plenty of water may help. Contact your doctor if the problem does not go away or is severe. You have been given the following additional information: Abdominal Pain, Unknown Cause, (Female) Hematuria Tramadol Hydrochloride Oral tablet No driving or operating machinery while taking medication. Sedative medication was given during your visit. (Electronically signed by Sancho Flores MD 03/02/2017 22:18)
--- NOTE | 2017-03-02 22:18 | ED MAR SUMMARY ---
..... Medication Administration Record [facility] [address] [place] [address] Patient: YARA VERNON Visit ID: [id number] 41y, F Weight: 79.3 kg Height/Length: 65 in BMI: 29.1 ALLERGIES: Hydrocodone Start 02:20 02/25/2017 Ashley Qureshi R.N., Stop 03:10 02/25/2017 Ashley Qureshi R.N. Medication Administered: IV NS (SALINE), Dose: IV Fluids, Rate: 125 mL/hr, Bolus: 500 mL over 30 minute(s), Dispensed: 1000 mL bag, Site: #1 right AC. Medication Ordered: IV NS : initial bolus 500 mL (1000 mL/hr), then 125 mL/hr for 4h (NOW); Urgent. Given 02:02/25/2017 Ashley Qureshi R.N. Medication Administered: ZOFRAN [IVP] (ONDANSETRON HCL), Dose: 4 mg IVP over 30 second(s), Site: #1 right AC. Medication Ordered: Zofran IV 4 mg (NOW). Given 02:02/25/2017 Ashley Qureshi RTyree Medication Administered: DILAUDID [IVP] (HYDROMORPHONE HCL PF), Dose: 0.5 mg IVP over 1 minute(s), Site: #1 right AC. Medication Ordered: Dilaudid IV 0.5 mg (HIGH ALERT MEDICATION, NOW).
== END 2017-02-25 03:10 | disposition home or self-care (01) ==
LOC: ED SRH 22:41
DX: R10.32 Left lower quadrant pain (principal); R31.29 Other microscopic hematuria; K21.9 Gastro-esophageal reflux disease without esophagitis; E78.5 Hyperlipidemia, unspecified; Z79.899 Other long term (current) drug therapy; F17.210 Nicotine dependence, cigarettes, uncomplicated; Z88.5 Allergy status to narcotic agent
CPT/HCPCS: 90004; 90100; 92235; 92530; 93070; 95059